=== PATIENT | male | born 1955 | race African-American/Black ===

== ENCOUNTER 2018-08-09 19:46 | Emergency (ER) | payer OTHER ==
[~2018-08-09] VITALS: Ht 185.4 cm; Wt 111.1 kg
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
[2018-08-09 19:56] VITALS: BP 152/82
[2018-08-09 20:04] VITALS: BP 150/76
[2018-08-09] MEDS ORDERED: TORADOL IV STA (20:11)
[2018-08-09] MEDS ORDERED: TORADOL ONE (20:18)
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
[2018-08-09 20:23] VITALS: BP 206/85
[2018-08-09 20:47] VITALS: BP 206/85
== END 2018-08-09 20:34 | disposition home or self-care (01) ==
LOC: EDBD 19:46 → ER 19:46
DX: S70.01XA Contusion of right hip, initial encounter (principal); S70.11XA Contusion of right thigh, initial encounter; Z88.0 Allergy status to penicillin; V69.3XXA Occupant (driver) (passenger) of heavy transport vehicle injured in unspecified nontraffic accident, initial encounter; Y93.89 Activity, other specified; Y92.488 Other paved roadways as the place of occurrence of the external cause; Y99.8 Other external cause status
CPT/HCPCS: 72170; 73502; 96374; 99285; J1885